=== PATIENT | female | born 1975 | race American Indian/Alaskan Native ===

== ENCOUNTER 2016-11-26 03:15 | Emergency (ER) | payer OTHER ==
[2016-11-26 03:26] VITALS: BP 149/101
== END 2016-11-26 05:48 | disposition left against medical advice (07) ==
LOC: ED 03:15
DX: R22.0 Localized swelling, mass and lump, head (principal); K13.79 Other lesions of oral mucosa; I10 Essential (primary) hypertension; K08.89 Other specified disorders of teeth and supporting structures; F17.200 Nicotine dependence, unspecified, uncomplicated; Z53.21 Procedure and treatment not carried out due to patient leaving prior to being seen by health care provider

== ENCOUNTER 2017-06-19 14:07 | Emergency (ER) | payer OTHER | END 2017-06-19 17:46 | disposition left against medical advice (07) | LOC: ED 14:07 | DX: J02.9 Acute pharyngitis, unspecified (principal); Z53.21 Procedure and treatment not carried out due to patient leaving prior to being seen by health care provider ==

== ENCOUNTER 2017-12-27 15:52 | Emergency (ER) | payer OTHER ==
[2017-12-27 16:15] VITALS: BP 152/106
--- NOTE | 2017-12-27 20:33 | Emergency Department Report ---
ED ENT HPI - General Chief complaint: Nosebleed Stated complaint: NOSE BLEED Time Seen by Provider: 12/27/17 20:08 Source: patient Mode of arrival: Ambulatory Limitations: No Limitations - History of Present Illness Initial comments: This is a 42-year-old female nontoxic, well nourished in appearance, no acute signs of distress presents to the ED with c/o of acute on chronic intermittent x3 days. Patient stated last nose bleed was this afternoon around 12 and then 2 PM but only lasts for a short time. Patient denies any trauma. Patient denies any dizziness, chest pain, short of breath, fever, chills, nausea, vomiting, headache or stiff neck. Patient denies any other symptoms. Patient denies any allergies. Past medical history includes hypertension which she does not take any medication as her primary care doctor request. Patient denies taking blood thinners or aspirin. MD complaint: epistaxis -: days(s) (3) Location: nose Severity scale (0 -10): 0 Improves with: none Worsens with: none Associated Symptoms: denies: fever, cough, gum swelling, toothache, pain with swallowing, sore throat, tinnitus, hearing loss, discharge from ear, rhinorrhea - Related Data Previous Rx's Medication Instructions Recorded Last Taken Type amLODIPine [Norvasc] 5 mg PO DAILY #30 tab 09/29/14 05/26/15 Rx Ibuprofen [Motrin] 800 mg PO Q8HR PRN #30 tablet 05/27/15 Unknown Rx Penicillin Vk [Veetids TAB] 500 mg PO QID #40 tablet 05/27/15 Unknown Rx traMADol [Ultram] 50 mg PO Q6HR PRN #14 tablet 05/27/15 Unknown Rx Allergies Allergy/AdvReac Type Severity Reaction Status Date / Time No Known Allergies Allergy Verified 05/27/15 02:53 ED Dental HPI - General Chief complaint: Nosebleed Stated complaint: NOSE BLEED Time Seen by Provider: 12/27/17 20:08 Source: patient Mode of arrival: Ambulatory Limitations: No Limitations - Related Data Previous Rx's Medication Instructions Recorded Last Taken Type amLODIPine [Norvasc] 5 mg PO DAILY #30 tab 09/29/14 05/26/15 Rx Ibuprofen [Motrin] 800 mg PO Q8HR PRN #30 tablet 05/27/15 Unknown Rx Penicillin Vk [Veetids TAB] 500 mg PO QID #40 tablet 05/27/15 Unknown Rx traMADol [Ultram] 50 mg PO Q6HR PRN #14 tablet 05/27/15 Unknown Rx Allergies Allergy/AdvReac Type Severity Reaction Status Date / Time No Known Allergies Allergy Verified 05/27/15 02:53 ED Review of Systems ROS: Stated complaint: NOSE BLEED Other details as noted in HPI Constitutional: denies: chills, fever Eyes: denies: eye pain, eye discharge, vision change ENT: epistaxis. denies: ear pain, throat pain Respiratory: denies: cough, shortness of breath, wheezing Cardiovascular: denies: chest pain, palpitations Endocrine: no symptoms reported Gastrointestinal: denies: abdominal pain, nausea, diarrhea Genitourinary: denies: urgency, dysuria, discharge Musculoskeletal: denies: back pain, joint swelling, arthralgia Skin: denies: rash, lesions Neurological: denies: headache, weakness, paresthesias Psychiatric: denies: anxiety, depression Hematological/Lymphatic: denies: easy bleeding, easy bruising ED Past Medical Hx - Past Medical History Previous Medical History?: Yes Hx Hypertension: Yes - Surgical History Past Surgical History?: No - Social History Smoking Status: Current Every Day Smoker Substance Use Type: Alcohol - Medications Home Medications: Home Medications Medication Instructions Recorded Confirmed Last Taken Type amLODIPine [Norvasc] 5 mg PO DAILY #30 tab 09/29/14 05/27/15 05/26/15 Rx Ibuprofen [Motrin] 800 mg PO Q8HR PRN #30 tablet 05/27/15 Unknown Rx Penicillin Vk [Veetids TAB] 500 mg PO QID #40 tablet 05/27/15 Unknown Rx traMADol [Ultram] 50 mg PO Q6HR PRN #14 tablet 05/27/15 Unknown Rx ED Physical Exam - General Limitations: No Limitations General appearance: alert, in no apparent distress - Head Head exam: Present: atraumatic, normocephalic - Eye Eye exam: Present: normal appearance Pupils: Present: normal accommodation - ENT ENT exam: Present: normal exam, normal orophraynx, mucous membranes moist, TM's normal bilaterally, normal external ear exam, other (no epistaxis. No foregin body in nose. No hematoma in the ears.) - Neck Neck exam: Present: normal inspection, full ROM. Absent: tenderness, meningismus, lymphadenopathy - Respiratory Respiratory exam: Present: normal lung sounds bilaterally. Absent: respiratory distress, wheezes, rales, rhonchi, stridor, chest wall tenderness, accessory muscle use, decreased breath sounds, prolonged expiratory - Cardiovascular Cardiovascular Exam: Present: regular rate, normal rhythm, normal heart sounds. Absent: irregular rhythm, systolic murmur, diastolic murmur, rubs, gallop - GI/Abdominal GI/Abdominal exam: Present: soft, normal bowel sounds - Extremities Exam Extremities exam: Present: normal inspection, full ROM, normal capillary refill - Back Exam Back exam: Present: normal inspection, full ROM - Neurological Exam Neurological exam: Present: alert, oriented X3, normal gait - Psychiatric Psychiatric exam: Present: normal affect, normal mood - Skin Skin exam: Present: warm, dry, intact, normal color. Absent: rash ED Course Vital Signs 12/27/17 16:12 Temperature 98.5 F Pulse Rate 100 H Respiratory 18 Rate Blood Pressure 152/106 O2 Sat by Pulse 100 Oximetry - Reevaluation(s) Reevaluation #1: 12/27/17 20:46 Patient is speaking in full sentences with no signs of distress noted. ED Medical Decision Making - Medical Decision Making This is a 42-year-old female that presents with hypertension and epistaxis. Patient is stable and was examined by me. Upon examination there is no epistaxis present. No hematoma or foreign body or abscess in the nostrils. Patient stated that she is off her hypertension medication and I instructed her that she must follow-up with a primary care doctor as it is elevated today at 152/106. Patient denies any headache. Patient is neurologically stable. Labs are unremarkable. PT/INR unremarkable. Patient was referred to Follow-up with a primary care doctor in 24 hours or if symptoms worsen and continue return to emergency room as soon as possible. At time of discharge, the patient does not seem toxic or ill in appearance. No acute signs of distress noted. Patient agrees to discharge treatment plan of care. No further questions noted by the patient. Critical care attestation.: If time is entered above; I have spent that time in minutes in the direct care of this critically ill patient, excluding procedure time. ED Disposition Clinical Impression: Epistaxis Hypertension Qualifiers: Hypertension type: unspecified Qualified Code(s): I10 - Essential (primary) hypertension Disposition: - TO HOME OR SELFCARE Is pt being admited?: No Does the pt Need Aspirin: No Condition: Stable Instructions: Hypertension (ED), Epistaxis (ED) Additional Instructions: Follow-up with a primary care doctor in 24 hours or if symptoms worsen and continue return to emergency room as soon as possible. Keep a daily dairy of your blood pressure and present it to your primary care doctor, as this may cause you to have nose bleeds. Referrals: PRIMARY CARE, [Primary Care Provider] - 3-5 Days KHAI GREEN MD [Staff Physician] - 3-5 Days [facility] [Outside] - 3-5 Days [facility] [Outside] - 3-5 Days Forms: Work/School Release Form(ED)
[2017-12-27 20:49] LABS: Basophils % (Auto) 0.5 % (0.0-1.8); Eosinophils # (Auto) 0.3 K/mm3 (0.0-0.4); Eosinophils % (Auto) 3.1 % (0.0-4.3); Hematocrit 37.8 % (30.3-42.9); Hemoglobin 12.8 gm/dl (10.1-14.3); Lymphocytes # (Auto) 2.3 K/mm3 (1.2-5.4); Lymphocytes % (Auto) 27.9 % (13.4-35.0); Mean Corpuscular HGB Conc 34 % (30-34); Mean Corpuscular Hemoglobin 34 pg (28-32); Mean Corpuscular Volume 99 fl (79-97); Monocytes # (Auto) 0.7 K/mm3 (0.0-0.8); Monocytes % (Auto) 8.3 % (0.0-7.3); Platelet Count 308 K/mm3 (140-440); Red Cell Distribution Width 13.1 % (13.2-15.2)
[2017-12-27 20:57] LABS: INR 0.93 (0.87-1.13)
[2017-12-27 20:58] LABS: Partial Thromboplastin Time 24.6 Sec. (24.2-36.6)
[2017-12-27 21:03] LABS: BUN/Creatinine Ratio 9; Blood Urea Nitrogen 7 mg/dL (7-17); Calcium 8.9 mg/dL (8.4-10.2); Hemolysis Index 0
== END 2017-12-27 21:10 | disposition home or self-care (01) ==
LOC: ED 15:52
DX: R04.0 Epistaxis (principal); I10 Essential (primary) hypertension; F17.200 Nicotine dependence, unspecified, uncomplicated
CPT/HCPCS: 36415; 80048; 85025; 85610; 85730; 99283